=== PATIENT | female | born 1965 | race Caucasian/White ===

== ENCOUNTER → 2016-07-04 18:11 | Emergency (ER) | payer SELFPAY ==
[~2016-07-04 18:11] MED LIST: AFRIN15 M1 INH; ALBUTEROL17 GM INH; NO MEDICATIONS; SUDAFED PO
== END | disposition home or self-care (01) ==
LOC: SED 18:11
DX: H92.02 Otalgia, left ear (principal); R05 Cough; F17.210 Nicotine dependence, cigarettes, uncomplicated; Z79.899 Other long term (current) drug therapy
CPT/HCPCS: 99282